=== PATIENT | female | born 1965 | race Caucasian/White ===

== ENCOUNTER 2025-01-15 12:46 | Emergency (ER) | payer OTHER, BC, SELFPAY ==
--- OUTSIDE RECORDS SUMMARY | 2025-01-15 12:48 | XMS_ITS | Clinical Summary ---
Author Organization [facility] Address [address] [place] [address] Care Team Providers Care Supervisor [employer] Name Role Phone Pcp, No Primary Care Provider Unavailabl e Allergies No known active allergies Medications omeprazole (PRILOSEC) 40 mg Delayed-Release capsuleIndicati ons:Chronic GERD,Esophageal dysphagia Take 1 Capsule (40 mg) by mouth once daily before a meal. 90 Capsule 4 025 Discontin ued(*Rekha ent states no longer taking) polyethylene glycol-electrol yte (GOLYTELY) 236-22.74-6.74 -5.86 gram suspensionIndic ations:Encounte r for screening colonoscopy Drink 2 liters (half the bottle) the day before colonoscopy and 2 liters (remaining prep) 6 hours prior to colonoscopy appointment. 4000 mL 4 025 Discontin ued(*Rekha ent states no longer taking) Active Problems Problem Noted Date Diagnosed Date Frequent PVCs 01/14/2025 Paroxysmal SVT (supraventricular tachycardia) Pap smear for cervical cancer screening 09/22/19 24 Overview (09/22/2023): 09/2023 NIL/HPV negative Plan: Pap and HPV due 09/2024 Resolved Problems Problem Noted Date Diagnosed Date Resolved Date Supervision of high-risk pre gnancy of elderly multigravida 12/08/2010 11/09/2011 Supervision of other normal 10/27/2010 12/08/2010 Encounters Date Type Department Care Team Description 01/14/2025 10:20 AM CDT Office Visit [facility] [address] [place] [address] Sonia Duarte PA Physical (Fasting.); Immunization/Injectio n 01/13/2025 Travel 12/23/2024 Travel from Last 3 Months Immunizations Immunization Administration Dates Next Due Hepatitis B, Unspecified 02/23/1993 Tdap 11/14/2018,11/09/2011 Zoster (Shingrix-RZV, recombinant) 01/14/2025, Family History Medical History Relation Name Comments Good Health Brother Geraldo Coronary artery disease Father suddenlywith 80% occlusion in one artery and 100% in another. Heart Disease Father age 53 of [place] Hypertension Father at 53 Cancer-colon Maternal Aunt Diabetes Maternal Grandfather Diabetes Maternal Grandmother Good Health Mother Heart Disease Paternal Grandfather Hyperlipidemia Paternal Grandmother Relation Name Status Comments Brother Geraldo Alive Father Maternal Aunt Alive Maternal Grandfather Maternal Grandmother Mother Alive Paternal Grandfather Paternal Grandmother Social History Tobacco Use Types Packs/Day Years Used Date Smoking Tobacco: Never Smokeless Tobacco: Never Tobacco Cessation:Counseling Given: Not Answered Alcohol Use Standard Drinks/Week Comments Yes 0 (1 standard drink = 0.6 oz pure alcohol) Maybe have 1-2 drinks once every 3-6 months PHQ-2 Answer Date Recorded PHQ-2 TOTAL SCORE 0 01/14/2025 Social Connections Answer Date Recorded Do you often feel lonely or isolated from those around you? 0 12/23/2024 Financial Resource Strain Answer Date R ecorded Difficulty of Paying Living Expenses 3 12/23/2024 Difficulty of Paying Living Expenses Not on file 12/23/2024 Food Insecurity Answer Date Recorded Do you worry your food will run out before you are able to buy more? 1 12/23/2024 Transportation Needs Answer Date Record ed Does lack of transportation keep you from medica l appointments? 1 12/23/2024 Does lack of transportation keep you from work, meetings or getting things that you need? 1 12/23/2024 Housing Stability Answer Date Recorded What is your housing situation today? 1 12/23/2024 Utilities Answer Date Recorded Do you have trouble paying f or utilities (for example, heat, electricity, water, phone)? 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 Please review and update details. 1999 Term 40w 0d 3.54 kg (7 lb 13 oz) F Vag Epidur al Livin g Anja 2001 Term 40w 0d 3.52 kg (7 lb 12 oz) M Vag None Livin g Lobo 2002 Term 40w 0d 3.66 kg (8 lb 1 oz) F Vag None Livin g Isabell 2004 Term 40w 0d 3.8 kg (8 lb 6 oz) M Vag None Livin g Darren 2008 SAB Last Filed Vital Signs Vital Sign Reading Time Taken Comments Blood Pressure 124/78 01/14/2025 10:13 AM CDT Pulse 63 01/14/2025 10:13 AM CDT Temperature 36.7 C (98.1 F) 12/12/2023 9:35 AM CDT Respiratory Rate 14 12/12/2023 9:35 AM CDT Oxygen Saturation 98% 01/14/2025 10:13 AM CDT Inhaled Oxygen Concentration - - Weight 78.9 kg (174 lb) 01/14/2025 10:13 AM CDT Height 173.3 cm (5' 8.23) 12/12/2023 9:35 AM CD T Body Mass Index 26.28 12/12/2023 9:35 AM CDT Plan of Treatment Health Maintenance Due Date Last Done Comments Pneumococcal series for age 50+ (1 of 2 - PCV) 1984 Hepatitis B series for 19+ ( 2 of 3 - 19+ 3-dose series) 03/23/1993 02/23/1993 Colonoscopy through age 75 2010 COVID-19 vaccine series (2023- season) 2024 Pap test for age 21-65 09/11/2024 , 10/10/2016, 12/08/2010 Mammogram for age 45-75 10/09/2024 10/10/19, 11/09/2011, 11/09/2011 BMI (ht and wt on same day) for age 18+ 12/11/2024 12/12/2023, 09/12/2023, 02/06/2017, Additional history exists Influenza Vaccine (#1) 2025 Depression screening for age 12+ 01/14/2026 01/14/2025, 09/12/2023, 09/12/2023, Additional history exists Tetanus booster 11/14/2028 11/14/2018, 08/2011, 11/09/2011 Lipids for age 45-75 01/14/2030 01/14/2025, 09/26/2023, 10/10/2016, Additional history exists HIV for age 15-65 Completed 10/27/2010 Hepatitis C screening for ag e 18-79 Completed 09/26/2023 Zoster (shingles) series for age 50+ Completed 01/14/2025, 09/12/2023 Procedures Procedure Name Priority Date/Time Associated Diagnosis Comments LIPID PANEL W REFLEX MEASURED LDL Routine 01/14/2025 11:24 AM CDT Hypercholesterolemia GLUCOSE, FASTING Routine 01/14/2025 11:2 4 AM CDT Screening for diabetes mellitus (DM) TSH WITH REFLEX Routine 01/14/2025 11:24 AM CDT Fatigue, unspecified type XR MAMMO NOAM BILAT SCREEN Routine 10/10/2023 1:15 PM CDT Routine adult health maintenance ANTI HCV Routine 09/26/2023 9:00 AM CDT Encounter for hepatitis C screening test for low risk patient HPV HIGH RISK Routine 09/12/2023 1:50 PM SKIN CARVER Screening for malignant neoplasm of cervix ANTI HIV 1/2 Routine 10/27/2010 5:12 PM CDT Supervision of other normal (HC) from Last 3 Months or Most Recently Relevant to Health Maintenance Results * TSH WITH REFLEX (01/14/2025 11:24 AM CDT) TSH W/REFLEX TO FT4 0.62 0.40 - 4.50 mIU/L [facility] Blood BLOOD SPECIMEN / Unknown 01/14/2025 11:24 AM CDT 01/14/2025 11:24 AM CDT us Sonia HOLLOWAY CHEMISTRY Final Res ult [facility] [address] [place] [address], [facility] [address] [place] [address] * (ABNORMAL) LIPID PANEL W REFLEX MEASURED LDL (01/14/2025 11:24 AM CDT) CHOLESTEROL, TOTAL 258(H) <200 mg/dL [facility] HDL CHOLESTEROL 82 > OR = 50 mg/dL [facility] TRIGLYCERIDES 101 <150 mg/dL [facility] LDL-CHOLESTEROL 155(H) mg/dL (calc) [facility] Comment: Reference range: <100 Desirable range <100 mg/dL for primary prevention; <70 mg/dL for patients with CHD or diabetic patients with > or = 2 CHD risk factors. LDL-C is now calculated using the Brandon calculation, which is a validated novel method providing better accuracy than the Friedewald equation in the estimation of LDL-C. Boom FINK et al. OPAL. 2013;310(19): 6731-2019 (http://education.Cable-Sense.AlphaClone/faq/QCF234) CHOL/HDLC RATIO 3.1 <5.0 (calc) [facility] Sahae NON HDL CHOLESTEROL 176(H) <130 mg/dL (calc) [facility] Comment: For patients with diabetes plus 1 major ASCVD risk factor, treating to a non-HDL-C goal of <100 mg/dL (LDL-C of <70 mg/dL) is considered a therapeutic option. Blood BLOOD SPECIMEN / Unknown 01/14/2025 11:24 AM CDT 01/14/2025 11:24 AM CDT Sonia HOLLOWAY CHEMISTRY Final Res ult [facility] [address] [place] [address], [facility] [address] [place] [address] * GLUCOSE, FASTING (01/14/2025 11:24 AM CDT) GLUCOSE 85 65 - 99 mg/dL [facility] Comment: Fasting reference interval Blood BLOOD SPECIMEN / Unknown 01/14/2025 11:24 AM CDT 01/14/2025 11:24 AM CDT Sonia HOLLOWAY CHEMISTRY Final Res ult [facility] [address] [place] [address], [facility] [address] [place] [address] * XR MAMMO NOAM BILAT SCREEN (10/10/2023 1:15 PM CDT) Anatomical Region Laterality Modality BREASTS, Breast Left, Breast Right Bilateral Mammography Impressions 10/11/2023 2:44 PM CDT There is no radiographic evidence for malignancy. Recommend annual mammograms. MAMMOGRAM ASSESSMENT: ACR 1 Negative PATIENTS: You will also receive a letter with your examination results in an easy to read format. If you have questions about your results, please contact your referring provider. Narrative 10/11/2023 2:44 PM CDT For Patients: As a result of the Century Cures Act, medical imaging exams and procedure reports are released immediately into your electronic medical record. You may view this report before your referring provider. If you have questions, please contact your health care provider. XR MAMMO NOAM BILAT SCREEN [[id number]] CLINICAL HISTORY: This is an asymptomatic 57 y.o. patient. INDICATION FOR EXAM: Mammogram Screening. TECHNIQUE: CC & MLO views were obtained. This study was evaluated with the assistance of Computer-Aided Detection. Breast Tomosynthesis was used in interpretation. COMPARISON FILM: Yes [facility] FINDINGS: The breasts have scattered areas of fibroglandular density. There are no dominant masses, suspicious micro calcifications or areas of architectural distortion. us Sonia HOLLOWAY MAMMO Final Res ult * ANTI HCV (09/26/2023 9:00 AM CDT) Pathologist [facility] HEPATITIS C ANTIBODY Non-Reacti ve Non-React armand 09/26/2023 4:50 PM CDT [facility] Comment:Please note, per www .CDC.gov: If a patient is known to be at high risk of HCV infection, or is symptomatic, and the physician's suspicion of HCV infection is high, HCV RNA testing is often employed and is of diagnostic value, even after an initial negative anti-HCV test result. Blood BLOOD SPECIMEN / Unknown Venipuncture / Unknown 09/26/2023 9:00 AM CDT 09/26/2023 9:01 AM CDT Sonia HOLLOWAY SEND OUTS Final Res ult [facility] [address] [place] [address], * HPV HIGH RISK (09/12/2023 1:50 PM SKIN CARVER) Pathologist [facility] TYPE 16 Negative Negative 09/15/2023 4:24 PM SKIN CARVER [facility] TYPE 18 Negative Negative 09/15/2023 4:24 PM SKIN CARVER [facility] OTHER HIGH RISK TYPES Negative Negative 09/15/2023 4:24 PM SKIN CARVER [facility] Other (Cervical) Non-Blood / Unknown 09/12/2023 1:50 PM SKIN CARVER 09/13/2023 11:34 AM SKIN CARVER Narrative [facility] - 09/15/2023 4:24 PM SKIN CARVER HPV types 16, 18, 31, 33, 35, 39, 45, 51, 52, 56, 58, 59, 66 and 68 DNA were undetectable or below the pre-set threshold. Methodology: Yanira Ike 4800 HPV Test Sonia HOLLOWAY MICROBIOLOGY Final Res ult [facility] [address] [place] [address], * ANTI HIV 1/2 (10/27/2010 5:12 PM CDT) ANTI HIV 1/2 Non-reacti ve [facility] Blood specimen (specimen) BLOOD SPECIMEN / Unknown 10/27/2010 5:12 PM CDT 10/27/2010 5:02 PM CDT Christiana Rodriguez MD SEND OUTS Final R esult [facility] INTERNAL ZIP [address] [address] from Last 3 Months or Most Recently Relevant to Health Maintenance Insurance [employer] Care Teams Supervisor [employer] Relationship Specialty Start Date End Date Pcp, No . PCP - General 10/05/16
--- OUTSIDE RECORDS SUMMARY | 2025-01-15 12:48 | XMS_ITS | Clinical Summary ---
Author Organization [facility] Address [address], [place] [address] Care Team Providers Care Critical Care Clinical Nurse Specialist Name Role Phone Kwaku Phillip MD Primary Care Provider Source Comments You are receiving this document as you are listed as the primary care provider,follow-up provider, or the patient has been referred to you for consultation.This is in compliance with the Medicare andOhiohealth Gr[facility] Memorial Hospitalcaid EHR Incentive Program,which states Providers who transition their patient to another setting of careor provider of care or refers their patient to another provider of care shouldprovide summary care record for each transition of care or referral. [employer] Active Problems Problem Noted Date Diagnosed Date Lumbago 12/14/2002 Overview (03/01/2017): Pain Low Back Social History Tobacco Use Types Packs/Day Years Used Date Smoking Tobacco: Never Assessed Comments Unknown Sex and Gender Information Value Date Recorded Sex Assigned at Not on file Legal Sex Female 10:03 AM CDT Gender Identity Not on file Sexual Orientation Not on file Plan of Treatment Health Maintenance Due Date Last Done Comments Cervical Cancer Screening Due 1965 Colon Cancer Screening Plan Due 1965 Hep C Screening (Preventive Services) 1965 Mammogram 1965 HIV Screening (Preventive Services) 1981 Adult Preventive Visit 12/05/1983 HepB Vaccine (1) 1984 Cholesterol 2010 07/16/1999 Pneumococcal Vaccine 50+ Yrs (1 of 1 - PCV) 12/05/2015 Zoster/Shingles Vaccine (1 o f 2) 12/05/2015 COVID-19 Vaccine (1 - 2023-2 5 season) 2024 Influenza Vaccine (#1) 2025 DTaP/Tdap/Td Vaccine (3 - Tdap) 11/14/2028 11/14/2018, 11/09/2011 HepA Vaccine Aged Out No longer eligi ble based on patient's age to complete this topic Hib Vaccine Aged Out No longer eligi ble based on patient's age to complete this topic IPV (Polio) Vaccine Aged Out No longe r eligible based on patient's age to complete this topic MCV4 Vaccine Aged Out No longer eligi ble based on patient's age to complete this topic Meningococcal B Vaccine Aged Out No l onger eligible based on patient's age to complete this topic Procedures Procedure Name Priority Date/Time Associated Diagnosis Comments LIPID PANEL & DIRECT LDL (IF NEEDED) Routine 07/16/1999 9:46 AM MATERIAL RECLAIMER from Last 3 Months or Most Recently Relevant to Health Maintenance Results * Lipid Panel and Direct LDL(If Needed) (07/16/1999 9:46 AM MATERIAL RECLAIMER) Cholesterol 199 125 - 199 mg/dL [facility] CON[facility] HDL Cholesterol 69 36 - 80 mg/dL [facility] CON[facility] Cholesterol/HDL Ratio Screen 2.9 No normal range [facility] CONVERSION Triglycerides 94 0 - 250 mg/dL [facility] CONVERSION LDL Calculated 111 66 - 129 mg/dL [facility] CON[facility] Comment:Fasting status adequ ate. 07/16/1999 9:46 AM MATERIAL RECLAIMER us Austen Frias MD LAB_1 Final Result HP CONVERSION from Last 3 Months or Most Recently Relevant to Health Maintenance Insurance HP FULLY INSURED HP F[employer] INSURED Care Teams Critical Care Clinical Nurse Specialist Relationship Specialty [place] [address] [place] [address] PCP - General 03/10/16
[2025-01-15 12:50] VITALS: BP 128/78; PULSE 102; RESP 18; TEMP 36.7; O2SAT 98; BMI 25.7
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
== END 2025-01-15 14:15 | disposition home or self-care (01) ==
PROVIDERS: Emergency Provider Family Medicine; PCP Student in an Organized Health Care Education/Training Program
DX: M54.2 Cervicalgia (principal); V44.5XXA Car driver injured in collision with heavy transport vehicle or bus in traffic accident, initial encounter
CPT/HCPCS: 70450; 72125; 99284